=== PATIENT | male | born 1970 | race African-American/Black ===

== ENCOUNTER 2016-10-29 09:58 | Day surgery (SDC) | payer OTHER ==
[~2016-10-29] VITALS: Ht 177.8 cm; Wt 112.9 kg
[2016-10-29] VITALS (9 sets, daily range): BP systolic 144–180; BP diastolic 76–107; PULSE 54–85; RESP 10–17; O2SAT 95–100
[~2016-10-29 09:58] MED LIST: ACET1TAB12 PO; AMLO5TAB2 PO; ASCO100089 PO; CHOL500011 PO; CITA20TA11 PO; CLON0.2T11 PO; FAMO20T PO; IBUP800T28 PO; LOSA100T3 PO; Lactated Ringer's 1,000 ML IV ONE; OMEP20CA11 PO; VIT1TABL83 PO
[2016-10-29] MEDS ORDERED: fentaNYL-PF 50 mCg/mL 2 mL Inj ONE (09:59)
[2016-10-29] MEDS ORDERED: HYDROmorphone 2 mg/mL Inj ONE (09:59)
[2016-10-29] MEDS ORDERED: FOLI0.4T2 PO (11:16)
--- NOTE | 2016-10-29 11:31 | PCM.HPANE ---
Patient Data Date of Service: Oct 29, 2016 Surgeon Admitting Provider: Attending Provider:Swapnil Hall MD Primary Care Physician:Florin Barnett MD Other Provider:Zen Batista Anesthesia Reason for Visit Hyperparathyroidism Ht/WT & BMI Height (Feet): 5 Height (Inches): 10 Weight (Kilograms): 112.9 Body Mass Index 35.00 Allergies Coded Allergies: erythromycin base (Unverified Allergy, Unknown, 06/19/16) morphine (Unverified Allergy, Unknown, 06/19/16) Past Anesthesia History Anesthesia History: Denies:: Abnormal Airway, Anesthesia Reactions, Difficult Intubation, Fam Anesthesia Reaction Diabetes History Hx Diabetes?: No MRSA MRSA: No Medications Hypertension Medication: Yes Home Meds Incl Beta Jerald: No Reported Medications Folic Acid 0.4 Mg Tablet0.4 Mg PO DAILY 10/29/16 Cholecalciferol (Vitamin D3) (Vitamin D3)5,000 Unit Tablet5,000 Unit PO BID 10/26/16 Vit B Comp/C/FA/Iron/Vit E (Vitamin B Complex Tablet)1 Each Tablet1 Each PO DAILY 10/26/16 Acetaminophen/Codeine 300-30mg (Tylenol/Codeine #3)1 Each Tablet1 Tablet PO Q6H PRN Pain Ref 0 10/26/16 Famotidine (Pepcid)20 Mg Mqfvwd70 Mg PO DAILY 10/26/16 Omeprazole 20 Mg Capsule.dr20 Mg PO DAILY Ref 0 10/26/16 Ibuprofen 800 Mg Ewytkj390 Mg PO TID PRN For Pain Ref 0 10/26/16 Losartan Potassium (Cozaar)100 Mg Fgdust316 Mg PO DAILY 10/26/16 Citalopram 20 Mg Aaxtuu83 Mg PO DAILY Ref 0 10/26/16 Clonidine (Catapres)0.2 Mg Tablet0.2 Mg PO BID Ref 0 10/26/16 Amlodipine 5 Mg Tablet5 Mg PO BID Ref 0 10/26/16 Discontinued Reported Medications Ascorbic Acid (Vitamin C)1,000 Mg Tab.chew1,000 Mg PO DAILY Ref 0 10/26/16 Cholecalciferol (Vitamin D3) (Vitamin D3)5,000 Unit Tablet5,000 Unit PO BID 09/27/16 Ascorbic Acid (Vitamin C)1,000 Mg Tab.chew1,000 Mg PO DAILY Ref 0 09/27/16 Vit B Comp/C/FA/Iron/Vit E (Vitamin B Complex Tablet)1 Each Tablet1 Each PO DAILY 09/27/16 Tramadol 50 Mg Uedueg82 Mg PO Q4H PRN For Pain Ref 0 09/27/16 Famotidine (Pepcid)20 Mg Emronl91 Mg PO DAILY 09/27/16 Ibuprofen 800 Mg Bgndao863 Mg PO TID PRN For Pain Ref 0 09/27/16 Clonidine (Catapres)0.2 Mg Tablet0.2 Mg PO BID Ref 0 09/27/16 Citalopram 20 Mg Yyuhfo39 Mg PO DAILY Ref 0 09/27/16 Losartan Potassium (Cozaar)100 Mg Qfjzpq850 Mg PO DAILY 09/27/16 Omeprazole 20 Mg Capsule.dr20 Mg PO DAILY Ref 0 09/27/16 History HEENT History: Denies:: Abnormal Airway Cataracts Difficult Intubation Dysphagia Hearing Problem Sinus Problem TMJ Hx of Heart Problems?: Yes Cardiovascular History: Positive for:: Hypertension Irregular Heartbeat (bradycardia cx last 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/2016-, BBB) Denies:: AICD Congestive Heart Failure Edema Heart Murmur Pacemaker Hx of Respiratory Problem?: Yes Respiratory History: Positive for:: Use of C-PAP Machine Denies:: Asthma COPD Emphysema Oxygen Administration Pneumonia Tuberculosis Hx Neurologic Problems?: No Neurological History: Denies:: CVA Headaches Multiple Sclerosis Parkinson's Disease Seizures Hx of GI Problems?: Yes Gastrointestinal History: Positive for:: Gastroesphageal Reflux Heartburn Denies:: Cirrhosis Diverticulitis Gastrointestinal Bleeding Hepatitis Hiatal Hernia Rectal Bleeding Hx of Problems?: No Genitourinary History: Denies:: Kidney Stones Urinary Tract Infection Male Hx: Denies:: Prostate Problems Skin History: Denies:: History Skin Disorders? Pressure Ulcers Hx Musculoskeletal Problems?: Yes Musculoskeletal History: Positive for:: Back Injury (lumbar fusions L4-5, L5S1 ) Denies:: Joint Replacement Musculoskeletal Trauma Hx of Psycho/Social Problems?: Yes Psycho Social History: Positive for:: Anxiety Hx Surgeries?: Yes (back fusions, lap nikole ) Hx Any Other Health Problems?: Yes Other History: Positive for:: Thyroid Disease (parathyroid current admission problem) Denies:: Cancer History Blood Transfusions: Denies:: Blood Transfusions Hx Diabetes: No Hx Alcohol Use: NoHx Substance Use: Yes (marijuana- nightly, every other night ) Smoking Status: Unknown if Ever Smoker Have You Smoked inLast 12 mo: Yes (quit february 2016) Stop/Bang S-Snoring: Do You Snore Loudly: Yes T-Tired: feel tired, fatigued: Yes O-Obsered: Observed not breath: Yes P-Blood Pressure: treated: Yes B- Body Mass Index > 35 kg/m2: Yes A- Age over 50: No N- Neck Large Circumference: No G- Gender Male: Yes EUGENIO Total Score: 6 EUGENIO Risk Assessment: High Risk, =/>3 Yes EUGENIO Category 4 OutPt Procedure: Yes Risk Assessment Category Category 1A: Patient has history of documented sleep apnea, and HAS NOT received any narcotic, sedative or anesthesia administration during this stay. Category 1B: Patient has history of documented sleep apnea, and HAS received any narcotic , sedative or anesthesia administration during this stay Category 2: Patient has SUSPECTED Obstructive Sleep Apnea, and HAS received any narcotic , sedative or anesthesia administration during this stay. Category 3: Patient has SUSPECTED Obstructive Sleep Apnea and HAS NOT received narcotic, sedative or anesthesia administration during this stay. Category 4: Outpatient in Procedural Areas with known sleep apnea or who screen positive for High Risk via the STOP/BANG questionnaire. Exam Exam Vital Signs Vital Signs Date Time Temp Pulse Resp B/P Pulse Ox O2 Delivery O2 Flow Rate FiO2 10/29/16 10:59 CPAP/BIPAP 10/29/16 10:56 36.8 54 16 148/94 99 Room Air General Appearance: Alert, Oriented X3, Cooperative, No Acute Distress HEENT/AIRWAY: MP 2 Lungs: Normal Air Movement Heart: Exam Unremarkable Meds/Labs/Diagnostics Admission Meds Current Medications Lactated Ringer's (Lr) 1,000 ml @ 120 mls/hr Q8H20M ONCE IV Last administered on 10/29/16t 10:13; Start 10/29/16 at 05:00; Stop 10/29/16 at 13:19 Plan Impression Patient chart reviewed, patient interviewed and anesthestic plan with risks, benefits, and alternatives discussed, and informed consent obtained. NPO Status: 10/28/16 ASA Physical Status: ASA2 Mod Systemic Disease Anesthetic Plan: GA Bene/Risks/Altern/Consents: Yes HP Complete Prior to Induction: Yes Orville Walters MD Oct 29, 2016 11:31
[2016-10-29] MEDS ORDERED: Lactated Ringer's 500 ML IV PRN (11:44)
[2016-10-29] MEDS ORDERED: Lactated Ringer's 1,000 ML IV SCH (11:44)
[2016-10-29] MEDS ORDERED: MetoCLOpramide 5 mg/mL 2 mL Inj IVPUSH PRN (11:45)
[2016-10-29] MEDS ORDERED: Atropine 0.4 mg/mL Inj IVPUSH PRN (11:45)
[2016-10-29] MEDS ORDERED: hydrALAZINE 20 mg/mL Inj IVPUSH PRN (11:45)
[2016-10-29] MEDS ORDERED: EPHEDrine Sulfate 50 mg/mL Inj IVPUSH PRN (11:45)
[2016-10-29] MEDS ORDERED: HYDROmorphone 1 mg/mL Inj IVPUSH PRN (11:45)
[2016-10-29] MEDS ORDERED: Dexamethasone 4 mg/mL Inj IVPUSH PRN (11:45)
[2016-10-29] MEDS ORDERED: Phenylephrine 10,000 mCg/mL Inj IVPUSH PRN (11:45)
[2016-10-29] MEDS ORDERED: Ondansetron 2 mg/mL 2 mL Inj IVPUSH PRN (11:45)
[2016-10-29] MEDS ORDERED: Labetalol 5 mg/mL 4 mL Inj IV PRN (11:45)
[2016-10-29] MEDS ORDERED: Bupivacaine-MPF 0.5% W/EPI 30 mL Inj INFILTRATE ONE (12:52)
--- NOTE | 2016-10-29 16:33 | DRSVH ---
PROCEDURE: NM PARATHYROID INJECTION ONLY INDICATIONS: HYPERPARATHYROIDISM COMPARISON: [facility], [place], [place] PARATHYROID W SPECT IMAGE, 07/20/2016, 11:53. [facility], CT, CT PARATHYROID W&WO CON, 08/14/2016, 8:04. FINDINGS: Presurgical injection of 10.3 mCi of technetium 99m sestamibi was performed intravenously for intraop erative localization. IMPRESSION: 1. Presurgical injection performed for intraoperative localization of a parathyroid adenoma. Dictated by: Ismael Duque M.D. on 10/29/2016 at 16:32 Approved by: Ismael Duque M.D. on 10/29/2016 at 16:32
[2016-10-29] MEDS ORDERED: Lactated Ringer's 1,000 ML IV ONE (17:57)
[2016-10-29] MEDS ORDERED: POLY17PO6 PO (18:14)
[2016-10-29] MEDS ORDERED: OXYC5TAB72 PO (18:14)
[2016-10-29] MEDS: fentaNYL-PF 50 mCg/mL 2 mL Inj IVPUSH PRN ×2 (18:51→18:57)
[2016-10-29] MEDS ORDERED: Benzocaine-Menthol Lozenge 2/Pkg PO ONE (19:14)
--- NOTE | 2016-10-29 21:06 | PCM.SURGPO ---
Immediate Operative Note Date of Surgery: Oct 29, 2016 Pre Operative Diagnosis Primary Hyperparathyroidism Post Operative Diagnosis Primary Hyperparathyroidism Procedure Parathyroid Exploration Surgeon and Parts Salesman Surgeon: Swapnil Hall MD Assistants: José Miguel Bennett MD, Radha Cloud MS3 Findings No obvious parathyroid adenoma identified. Only Grossly normal Left upper parathyroid identified and biopsied Complications There were no periprocedural complications identified. Surgical Specimen Removed: Yes Specimen sent to Pathology: Yes Surgical Specimen description: 1. Right Inferior thyroid nodule 2 & 3. Left upper parathyroid biopsy 4. Thyrothymic ligament 5. Left jugular lymph node Anesthetic Administered: GA Grafts, Implants: None Output, Estimated Blood Loss: 10 Blood Admin during surgery: No Attending Statement Operating Room Coordinator was medically necessary for the completion of the case Swapnil Hall MD Oct 29, 2016 21:05
--- NOTE | 2016-10-30 05:21 | NUR ---
Recover and Discharge Pt arrived from PACU at 2119, fully alert and oriented, dressing C/D/I. Able to take ice water without nausea. Pain reported related to hip and back, treated with Tylenol and 5 mg oxycodone. Incisional pain minimal, throat pain from intubation coming under control with Cepacol lozenges. Md aware of elevated B/P, does not want to delay d/c for this, pt may take home evening B/P meds. Pt ready for D/C within one hour, stable on feet, able to void. D/C with all belongings, including CPAP machine, D/C orders reviewed. IV d/c'd, left with family member.
[2016-10-30] MEDS ORDERED: Polyethylene Glycol (PEG) 17 Gm Powder PO SCH (08:30)
--- NOTE | 2016-10-30 08:47 | OP ---
[address] [address] OPERATIVE REPORT PATIENT: BAL DE DIOS : 1970 MR#: [id number] ADMIT: 10/29/2016 JOB ID: [id number] DATE OF SURGERY: 10/29/2016 PREOPERATIVE DIAGNOSIS(ES): Primary hyperparathyroidism. POSTOPERATIVE DIAGNOSIS(ES): Primary hyperparathyroidism. PROCEDURE PERFORMED: Parathyroid exploration. SURGEON: Swapnil Hall MD TOOL AND DIE MAKER LEVEL FIVE: 1. José Miguel Bennett MD 2. Radha Cloud MS3 ANESTHESIA: General endotracheal with local. ESTIMATED BLOOD LOSS: 10 mL. COMPLICATIONS: None. INDICATIONS: The patient is a 46-year-old gentleman who presented to the emergency department with acute abdominal pain on June 19, 2016. He was diagnosed with biochemical pancreatitis and hypercalcemia, which prompted Dr. Cochran to initiate a workup for hyperparathyroidism. Upon further questioning, patient reports feeling depressed over the last couple of years requiring antidepressants. He also reports chronic episodic abdominal discomfort, constipation, bloating and increased flatulence. I met him on August 07, 2016, and repeated his blood work and obtained a CT and ultrasound of the neck to try and localize the parathyroid adenoma. He was scheduled for parathyroid exploration on October 01, 2016, but ended up getting canceled due to bradycardia. Since then, his antihypertensive regimen was changed and he is back today for parathyroid exploration. In terms of his preoperative investigations, his calcium was in the high 10-11 range with parathormone at 76, with 65 being the upper limit of normal. Sestamibi scan did not show any evidence of parathyroid adenoma. Ultrasound also did not show any obvious adenoma. The parathyroid protocol CT showed an 8 mm density intermediate to left thyroid pole, but with contrast characteristics consistent more with a thyroid nodule than an adenoma. After discussing the risks, benefits and alternatives, he is here today for parathyroid exploration. PROCEDURE: Preoperatively, he had injection of 10 mCi of Technetium-99m labeled sestamibi in the Day Surgery area and was brought to the operating room, underwent smooth induction of general anesthesia, was placed in a beach chair position with all pressure points adequately padded and neck was prepped and draped in the usual sterile fashion. Surgical time-out was undertaken using safety checklist, and all were in agreement. Began by making a skin incision a couple fingerbreadths above the jugular notch, dividing the skin and subcutaneous tissue sharply, and dividing the platysma. I then raised the subplatysmal plane superiorly to the thyroid cartilage and inferiorly to the suprasternal notch. I then opened the midline and the strap muscles, first focusing on the right based on CT which was suggestive of a right inferior parathyroid adenoma on review. We first explored the inferior aspect of the right neck after mobilizing the sternohyoid and sternothyroid muscles laterally. The thyroid lobe was retracted medially, dissection taken all the way to the spine, and exploration of this area revealed only a nodule that was associated intimately with the inferior pole of the thyroid, which was more consistent with a thyroid nodule than a parathyroid adenoma. We ended up excising it and sending it to pathology for frozen section to make sure. After exploring inferior and posterior to the inferior pole of the thyroid, we took the dissection superiorly after dividing the middle thyroidal vein to try and identify a right superior parathyroid. We first identified the right recurrent laryngeal nerve and the inferior thyroid vessels and explored in the location immediately posterior to that and posterior to the superior aspect of the thyroid without mobilizing the superior pole. Because of the significant adipose tissue in his neck, this exploration took quite a long time, but no obvious tissue was seen consistent with a normal or abnormal parathyroid on the right side. After that, we directed our attention to the left side, and after lifting the sternohyoid and sternothyroid muscles up, retracting laterally, we explored for the left inferior parathyroid near the inferior pole posteriorly and anteriorly around the thyroid. We also explored the thyrothymic ligament without any results. Then, we were able to identify left upper parathyroid which was morphologically normal immediately posterior to the left superior pole. We biopsied this on the lateral aspect without disturbing its blood supply, and sent it for frozen to confirm histology, and this was consistent with normal parathyroid tissue. We then proceeded to excise the thyrothymic ligament extending from the thyroid superiorly and down to the trachea, extending to the bilateral carotid sheath. We stayed anterior to the trachea to make sure we are protecting the recurrent laryngeal nerve bilaterally. We used LigaSure to excise this tissue all the way to the innominate safely without injuring it. After every specimen was removed, we were checking serial parathyroid hormone levels, but we never saw a drop that we would expect after removal of the offending parathyroid. We then redirected our attention to the right upper pole trying to identify the parathyroid in location similar to the one on the left side. We ended up the dividing all the superior pole vessels making sure we stayed out of the cricothyroid and preserving the external branch of the superior laryngeal nerve while we took the vessels right on the superior pole. After mobilizing the superior pole, we explored the tracheoesophageal groove and the area immediately posterior to the upper pole without any evidence of an upper parathyroid either normal or abnormal. We did remove one other structure on the left lateral aspect near the carotid sheath which was first looking like a possible parathyroid, but in the end just looked like a lymph node. At this point, we were close to 5-1/2 hours into the case and we were not sure we could proceed without putting the patient to harm, so we decided to sample both internal jugulars for parathyroid hormone levels to see if it would help as localized. Just to summarize, at this point, we have only positively identified the left upper normal parathyroid gland. After this, we made sure we had good hemostasis and then closed the neck approximating the straps in the midline with interrupted 3-0 Vicryl, and then we reapproximated the platysma layer again with 3-0 Vicryl, and then closed the skin with 4-0 Monocryl. Steri-Strips and sterile dressing were applied. Patient was recovered from anesthesia and was taken to the recovery room in stable condition. In the recovery room, his voice was normal and his breathing was not labored. He was neurologically intact and he was doing well other than having a sore throat. ADDITIONAL INFORMATION: For modifier 22. Given the difficulty in localizing his parathyroid, especially given his imaging findings and anatomy given the adipose tissue in his neck, his operation required more than double the time anticipated for parathyroid exploration, prompting us to request increased reimbursement. TIA
--- NOTE | 2016-10-30 15:27 | PCM.ANEP2 ---
Post Anesthesia Evaluation ASA/CMS Post Anesthesia VS in Patient's Normal Range?: Yes Resp Stable; Airway Patent?: Yes CV Function & Hydration Stable: Yes Mental Status Recovered?: Yes Pain control Satisfactory?: Yes N/V Control Satisfactory?: Yes Anish Abarca MD Oct 30, 2016 15:27
--- NOTE | 2016-10-30 15:27 | PCM.ANEP1 ---
Post Anesthesia Phase 1 PACU Phase 1 Assessment Date of Service: Oct 29, 2016 Anesthetic Administered: GA Level of Alertness: Sleepy, easy to arouse RIZZO's with Equal Strength: Yes Pain: No Pain Scale Score: 5 Nausea or Vomiting: No Oxygen Delivery: Simple Mask Lungs: Clear to Auscultation, Normal Air Movement Dermatome Level: Full Sensation Anish Abarca MD Oct 30, 2016 15:27
== END 2016-10-29 21:20 | disposition home or self-care (01) ==
LOC: SAS 09:58 → OSC 19:32 → SAS 21:20
PROVIDERS: ATTEND Student in an Organized Health Care Education/Training Program
PROC: 0GJR0ZZ Inspection of Parathyroid Gland, Open Approach (ICD-10-PCS; principal; 2016-10-29 12:00)
DX: E21.0 Primary hyperparathyroidism (principal); I10 Essential (primary) hypertension; E78.5 Hyperlipidemia, unspecified; F41.8 Other specified anxiety disorders; G47.30 Sleep apnea, unspecified; I45.10 Unspecified right bundle-branch block; R00.1 Bradycardia, unspecified; E66.9 Obesity, unspecified; Z68.36 Body mass index [BMI] 36.0-36.9, adult; Z87.891 Personal history of nicotine dependence